=== PATIENT | male | born 1980 | race Caucasian/White ===

== ENCOUNTER 2021-09-15 08:26 | Emergency (ER) | payer BC ==
[~2021-09-15] VITALS: Ht 177.8 cm; Wt 71.2 kg
[2021-09-15] MEDS ORDERED: CLARITIN (08:40)
[2021-09-15] MEDS ORDERED: IBUPROFEN (08:40)
[2021-09-15] MEDS ORDERED: MORPHINE SULFATE 2 MG/1 ML DISP.SYRIN IV ONE (08:45)
[2021-09-15] MEDS ORDERED: IV NORMAL SALINE 1000 ML BAG IV ONE (08:45)
[2021-09-15] MEDS ORDERED: ONDANSETRON 4 MG/2 ML VIAL IV ONE (08:45)
[2021-09-15] MEDS ORDERED: MORPHINE SULFATE 4 MG/1 ML DISP.SYRIN ONE (08:48)
[2021-09-15] MEDS ORDERED: ONDANSETRON 4 MG/2 ML VIAL ONE (08:48)
[2021-09-15 08:49] LABS: HEMATOCRIT 43.1 % (36.7-47.1); MEAN CORPUSCULAR HEMOGLOBIN 29.2 uug (23.8-33.4); PLATELET COUNT (AUTO) 211 K/uL (152-348)
[2021-09-15 08:54] LABS: POTASSIUM 4.1 mmol/L (3.5-5.1)
[2021-09-15] MEDS ORDERED: KETOROLAC TROMETHAMINE 30 MG INJ IVP ONE ×2 (09:00→11:15)
[2021-09-15] MEDS ORDERED: HYDROMORPHONE 1 MG/1 ML DISP.SYRIN IV ONE (09:00)
[2021-09-15] MEDS ORDERED: HYDROMORPHONE 1 MG/1 ML DISP.SYRIN ONE (09:01)
--- NOTE | 2021-09-15 09:03 | NUR ---
PT MEDICATED FOR PAIN PER MD ORDER. AT BEDSIDE.
[2021-09-15 09:05] LABS: BILIRUBIN,DIRECT 0.1 mg/dL (0.0-0.2); BILIRUBIN,TOTAL 0.6 mg/dL (0.2-1.0)
[2021-09-15 09:06] LABS: TOTAL PROTEIN, SERUM 7.4 g/dL (6.4-8.2)
[2021-09-15] MEDS ORDERED: KETOROLAC TROMETHAMINE 30 MG INJ ONE ×2 (09:09→11:26)
[2021-09-15] MEDS ORDERED: DIAZEPAM 10 MG/2 ML DISP.SYRIN IV ONE (09:15)
--- NOTE | 2021-09-15 09:16 | NUR ---
PT FURTHER MEDICATED PER MD ORDER; REPORTS NO ADEQUATE RELIEF OBTAINED FROM PAIN MEDS.
[2021-09-15] MEDS ORDERED: DIAZEPAM 10 MG/2 ML DISP.SYRIN ONE (09:20)
[2021-09-15 11:05] LABS: *BILIRUBIN,URIN NEGATIVE (NEGATIVE); *BLOOD, URINE NEGATIVE (NEGATIVE); *CLARITY,URINE CLEAR (CLEAR); *COLOR,URINE YELLOW (YELLOW); *KETONES,URINE NEGATIVE (NEGATIVE); *UROBILINOGEN,URINE 0.2 E.U./dl (NORMAL); LEUKOCYTE ESTERASE ,URINE NEGATIVE (NEGATIVE); NITRITE, URINE NEGATIVE (NEGATIVE); UGLUCOSE NEGATIVE (NEGATIVE)
[2021-09-15] MEDS ORDERED: IBUP-1957 PO (11:11)
[2021-09-15] MEDS ORDERED: CYCL10TA9 PO (11:11)
[2021-09-15] MEDS ORDERED: HYDR-4209 PO (11:11)
--- NOTE | 2021-09-15 11:35 | NUR ---
Patient is resting comfortably in bed with eyes closed, NAd noted.
--- NOTE | 2021-09-15 12:04 | NUR ---
Pt is awake and assissted to the chair by .
--- NOTE | 2021-09-15 12:15 | NUR ---
Pt and pt's requesting the pt to be admitted for back pain.
--- NOTE | 2021-09-15 12:56 | NUR ---
Ice pack x2 w/ ankur wrap applied to Pt back per Md request. Pt stated it helps his pain.
--- NOTE | 2021-09-15 13:01 | NUR ---
IV removed. Catheter intact and site benign. Pressure and 4x4 gauze applied to site. No bleeding noted.
--- NOTE | 2021-09-15 13:02 | NUR ---
Assissted pt to the car via wheelchair. Pt's driving pt home.
--- NOTE | 2021-09-15 13:02 | NUR ---
Patient discharged to home in stable condition. Written and verbal after care instructions given. Patient verbalizes understanding of instructions. Stressed follow up or return to ER for worsening s/s.
[2021-09-15 13:03] VITALS: BP 117/77
== END 2021-09-15 13:13 | disposition home or self-care (01) ==
LOC: ER 08:26
DX: M62.830 Muscle spasm of back (principal)
CPT/HCPCS: 36415; 74176; 80048; 80076; 81003; 83690; 85025; 96361; 96374; 96375; 96376; 99285; J1170; J1885 ×2; J2270; J2405; J3360; A4663; J3490